=== PATIENT | male | born 1970 | race Two or more races ===

== ENCOUNTER 2021-07-05 17:44 | Emergency (ER) | payer OTHER ==
[2021-07-05 18:04] VITALS: BMI 25.7
[2021-07-05] MEDS ORDERED: KETOROLAC TROMETHAMINE 30 MG/1 ML VIAL IM ONE (18:49)
[2021-07-05] MEDS ORDERED: LIDOCAINE 5% TOPICAL PATCH TP ONE (18:49)
[2021-07-05] MEDS ORDERED: METHOCARBAMOL 500 MG TABLET PO ONE (18:49)
[2021-07-05] MEDS ORDERED: KETOROLAC TROMETHAMINE 30 MG/1 ML VIAL ONE (19:23)
[2021-07-05] MEDS ORDERED: METHOCARBAMOL 500 MG TABLET ONE (19:23)
[2021-07-05] MEDS ORDERED: LIDOCAINE 5% TOPICAL PATCH ONE (19:23)
[2021-07-05 20:33] VITALS: BP 159/85; PULSE 75; TEMP 98.6
== END 2021-07-05 20:33 | disposition home or self-care (01) ==
LOC: JER 17:44 → JERFT 17:44
PROC: 3E023GC Introduction of Other Therapeutic Substance into Muscle, Percutaneous Approach (ICD-10-PCS; principal; 2021-07-05)
DX: M54.50 Low back pain, unspecified (principal)
CPT/HCPCS: 72100-TC-FY; 99284-25